=== PATIENT | female | born 1940 | race Caucasian/White ===

== ENCOUNTER → 2017-09-02 11:19 | Outpatient (CLI) | payer MEDICARE, BC, SELFPAY ==
[2017-09-02 12:09] LABS: Hemoglobin A1C% w Est Avg Glu 9.2 % (4.0-6.0)
[2017-09-02 13:34] LABS: HEMOLYSIS < 15 (0-50); Potassium 3.9 mmol/L (3.4-5.1)
[2017-09-02 13:35] LABS: Blood Urea Nitrogen 9 mg/dL (7-17); Calcium 9.5 mg/dL (8.4-10.2); Carbon Dioxide 28 mmol/L (22-32); Chloride 98 mmol/L (98-107); Estimated Glomerular Filt Rate > 60.0 mL/min (>60); Glucose 229 mg/dL (80-110); Sodium 138 mmol/L (137-145)
== END ==
PROVIDERS: PCP Family Medicine; Visit Provider Family Medicine
DX: E11.9 Type 2 diabetes mellitus without complications (principal)
CPT/HCPCS: 36415; 80048; 83036

== ENCOUNTER → 2017-12-01 09:55 | Outpatient (CLI) | payer MEDICARE, BC, SELFPAY ==
[2017-12-01 10:59] LABS: Hemoglobin A1C% w Est Avg Glu 9.1 % (4.0-6.0)
[2017-12-01 11:02] LABS: BUN Creatinine Ratio 18.3 (6-22); Blood Urea Nitrogen 11 mg/dL (7-17); Calcium 9.7 mg/dL (8.4-10.2); Carbon Dioxide 32 mmol/L (22-32); Chloride 99 mmol/L (98-107); Estimated Glomerular Filt Rate > 60.0 mL/min (>60); Glucose 183 mg/dL (80-110); HEMOLYSIS < 15 (0-50); Potassium 4.8 mmol/L (3.4-5.1); Sodium 142 mmol/L (137-145)
--- NOTE | 2017-12-29 14:36 | ONC.NAV ---
Description: Survivorship Care Plan Summary Activity: Sent copies to both patient and primary care provider.
== END ==
PROVIDERS: PCP Family Medicine; Visit Provider Family Medicine
DX: E11.9 Type 2 diabetes mellitus without complications (principal)
CPT/HCPCS: 36415; 80048; 83036

== ENCOUNTER → 2018-03-08 08:59 | Outpatient (CLI) | payer MEDICARE, BC, SELFPAY ==
[2018-03-08 10:32] LABS: Hemoglobin A1C% w Est Avg Glu 12.1 % (4.0-6.0)
[2018-03-08 10:56] LABS: BUN Creatinine Ratio 21.4 (6-22); Blood Urea Nitrogen 15 mg/dL (7-17); Calcium 9.5 mg/dL (8.4-10.2); Carbon Dioxide 30 mmol/L (22-32); Chloride 96 mmol/L (98-107); Estimated Glomerular Filt Rate > 60.0 mL/min (>60); Glucose 306 mg/dL (80-110); HEMOLYSIS < 15 (0-50); Potassium 4.4 mmol/L (3.4-5.1); Sodium 135 mmol/L (137-145)
== END ==
PROVIDERS: PCP Family Medicine; Visit Provider Family Medicine
DX: E11.9 Type 2 diabetes mellitus without complications (principal)
CPT/HCPCS: 36415; 80048; 83036

== ENCOUNTER → 2018-03-11 09:18 | Outpatient (CLI) | payer MEDICARE, BC, SELFPAY ==
--- NOTE | 2018-03-11 | DI.MG.S_ITS ---
BILATERAL DIGITAL SCREENING MAMMOGRAM 3D/2D WITH CAD: 03/11/2018 CLINICAL: Routine screening. Personal history of right breast cancer. Family history of breast cancer. Comparison is made to exams dated: 02/05/2017 mammogram, 02/04/2016 mammogram, and 08/09/2015 mammogram - [facility]. The tissue of both breasts is heterogeneously dense. This may lower the sensitivity of mammography. Current study was also evaluated with a Computer Aided Detection (CAD) system. There are benign post operative findings in the right breast. There also are benign calcifications in both breasts. There are mole markers on both breasts. No significant masses, calcifications, or other findings are seen in either breast. There has been no significant interval change. IMPRESSION: There is no mammographic evidence of malignancy. A 1 year screening mammogram is recommended. This exam was interpreted at Station ID: [id number]. NOTE: For mammograms, a report in lay terms will be sent to the patient. Approximately 15% of breast malignancies will not be visualized mammographically. In the management of a palpable breast mass, a negative mammogram must not discourage biopsy of a clinically suspicious lesion. Electronically Signed By: Armaan reyes/tolu:03/11/2018 22:16:25 letter sent: Normal Exam ACR BI-RADS Category 2: Benign Finding(s) 3342F
== END ==
PROVIDERS: Family Provider Surgery; PCP Family Medicine; Visit Provider Family Medicine
DX: Z12.31 Encounter for screening mammogram for malignant neoplasm of breast (principal); Z85.3 Personal history of malignant neoplasm of breast; Z80.3 Family history of malignant neoplasm of breast
CPT/HCPCS: 77063; 77067

== ENCOUNTER → 2018-06-03 10:42 | Outpatient (CLI) | payer MEDICARE, BC, SELFPAY ==
[2018-06-03 12:32] LABS: BUN Creatinine Ratio 17.1 (6-22); Blood Urea Nitrogen 12 mg/dL (7-17); Calcium 9.7 mg/dL (8.4-10.2); Carbon Dioxide 28 mmol/L (22-32); Chloride 97 mmol/L (98-107); Estimated Glomerular Filt Rate > 60.0 mL/min (>60); Glucose 138 mg/dL (80-110); HEMOLYSIS < 15 (0-50); Potassium 4.5 mmol/L (3.4-5.1); Sodium 136 mmol/L (137-145)
== END ==
PROVIDERS: Family Provider Surgery; PCP Family Medicine; Visit Provider Family Medicine
DX: E11.9 Type 2 diabetes mellitus without complications (principal)
CPT/HCPCS: 36415; 80048; 83036

== ENCOUNTER 2018-08-04 11:28 | Day surgery (SDC) | payer MEDICARE, BC, SELFPAY ==
--- NOTE | 2018-08-01 11:44 | PM.PREOP ---
Pre-operative Note Interval Note History & Physical reviewed/Exam performed by Physician: Yes Changes to H&P: No H&P completed within 30 days and has changed as indicated here:: glucose was checked on admission and stable prior to surgery.
--- NOTE | 2018-08-01 11:44 | PM.OP.1 ---
Operative Date/Time/Diagnoses Date of procedure: 08/04/18 Time of procedure: 11:45 Procedure & Clinicians Procedure: Preoperative diagnoses: 1. 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 2. Diabetes without retinopathy. 3. Labile hypertension. 4. Dry eye with corneal epithelial changes. 5. Strabismus. Postoperative diagnoses: 1. Right cataract removed by phacoemulsification with placement of posterior chamber intraocular lens and use of MiLOOP . 2. 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 3. Labile hypertension. Procedure: Phacoemulsification with posterior chamber intraocular lens implant Surgeon: Stacey Odom MD Complications: None Specimen: None Implant: ZCBOO+23.0 Blood loss: None Anesthesia: Retrobulbar with monitored standby Description of procedure: Patient presents with a complaint of decreased vision due to cataract which is affecting activities of daily living. The patient wants surgery to improve vision. She has advanced nuclear sclerotic cataract with poor visibility of the anterior capsule. She will possibly require capsular dye and a Miloop to reduce surgical risk. Her diabetes and hypertension were stabilized for surgery. The patient was taken to the operating room and given IV sedation. A retrobulbar block consisting of 6 cc of 2% xylocaine without epinephrine mixed half and half with 0.5% Marcaine with 1 cc of hyaluronidase added is placed between the medial and lateral 1/3 of the inferior orbital rim. Lid akinesia is obtain with 1% xylocaine with epinephrine infiltrated along the lid margin. The eye is manually massaged for 30 sec, prepped using Betadine solution, and draped in the usual sterile fashion. Temporal approach was made, a 1 mm side-port incision was made 90? from the proposed clear corneal incision position. Phenylephrine 1.5% mixed with 1% xylocaine 0.2 cc was placed into the anterior chamber. No capsular dye was used. Viscoat followed by Paz was then placed. A 2.6 mm clear incision with a 2.6 mm blade was placed. A 360 degree capsulorrhexis style capsulotomy was then performed with a cystitome needle on a Healon greatly aided by the capsular dye. Hydrodelineation and hydrodissection were performed.Extra viscoelastic was placed into the anterior chamber. A MiLOOP device was inspected, inserted into the anterior chamber in the neutral position and placed around the peripheral nucleus under the right side of the capsulorrhexis. The lens was then viviana -dissected and the device then removed from the eye. The phacoemulsification unit is introduced, and sculpting notice used to emulsify the central lens. It is then removed in chopping mode. Epi nucleus is removed with epinuclear mode and irrigation aspiration was used to remove the peripheral cortex. The posterior capsule is polished. The intraocular lens is selected, inspected, power confirmed, and placed in the posterior chamber. The pupil was constricted with Miostat.. The wound was stromally hydrated and tested for leaks, there was none and it was left sutureless. Vigamox 0.1 cc was placed into the anterior chamber. Kenalog 0.2 cc was placed in the superior subconjunctival space. A drop of antibiotic and was placed and the eye was patched and shielded. The patient was stable and returned to the recovery room in excellent condition. Dictated by: Stacey Odom MD Copy to: [facility]
[2018-08-04] MEDS: PROPARACAINE 0.5% OPHTH SOL 2 DROPS EYE-OP (11:44)
[2018-08-04 11:47] VITALS: BP 153/78; PULSE 82; RESP 15; TEMP 36.2; O2SAT 99
[2018-08-04] MEDS: CATARACT EYE COMPOUND (10 DROPS/SYRINGE) 3 DROPS EYE-OP (11:50)
[2018-08-04 11:51] VITALS: BMI 27.9
[2018-08-04] MEDS: LIDOCAINE 2% 4 ML, BUPIVACAINE 0.5% (PF) 4 ML, HYALURONIDASE 150 UNIT INJ (13:04)
[2018-08-04] MEDS: LIDOCAINE 1% W/EPI INJ 20 ML INJ (13:05)
[2018-08-04] MEDS: PHENYLEPHRINE/LIDOCAINE VIAL (OR) 0.2 ML EYE-OP (13:05)
[2018-08-04] MEDS: MOXIFLOXACIN OPHTH DROPS 3 ML BOTTLE 2 DROPS INJ (13:05)
[2018-08-04] MEDS: CARBACHOL 1.5 ML VIAL INJ (13:06)
[2018-08-04] MEDS: HYALURONATE SODIUM 10 MG/ML SYRINGE INJ (13:06)
[2018-08-04] MEDS: CHONDROIDTIN/SOD HYALURONATE 1.05 ML SYRINGE INTRAOCULA (13:06)
[2018-08-04] MEDS: TRIAMCINOLONE 50 MG/5 ML VIAL INJ (13:06)
[2018-08-04] MEDS: BALANCED SALT IRRIG SOLN NO.2 15 ML IRR (13:06)
[2018-08-04] MEDS: NEOMYCIN/POLY/DEX OPHTH OINT 1 APPLIC EYE-RIGHT (13:07)
[2018-08-04] MEDS: OFLOXACIN 0.3% OPHTH 5 ML 2 DROPS EYE-RIGHT (13:07)
[2018-08-04] MEDS: BALANCED SALT IRRIG SOLN NO.2 500 ML, EPINEPHrine 1 MG IRR (13:08)
[2018-08-04 13:32] VITALS: BP 117/65; PULSE 74; RESP 16; TEMP 36.5; O2SAT 100
== END 2018-08-04 13:43 | disposition home or self-care (01) ==
LOC: OR 11:29
PROVIDERS: PCP Family Medicine; Visit Provider Ophthalmology
PROC: (CPT 66984; principal; 2018-08-04 11:45)
DX: H25.811 Combined forms of age-related cataract, right eye (principal); E11.9 Type 2 diabetes mellitus without complications; H04.129 Dry eye syndrome of unspecified lacrimal gland; H50.9 Unspecified strabismus; I10 Essential (primary) hypertension; E78.5 Hyperlipidemia, unspecified; E03.9 Hypothyroidism, unspecified
CPT/HCPCS: 66984; J0171; J2250; J2704; J3010; J3301; J3470

== ENCOUNTER → 2018-09-07 11:22 | Outpatient (CLI) | payer MEDICARE, BC, SELFPAY ==
[2018-09-07 12:16] LABS: BUN Creatinine Ratio 23.3 (6-22); Blood Urea Nitrogen 14 mg/dL (7-17); Calcium 9.6 mg/dL (8.4-10.2); Carbon Dioxide 29 mmol/L (22-32); Chloride 99 mmol/L (98-107); Estimated Glomerular Filt Rate > 60.0 mL/min (>60); Glucose 117 mg/dL (80-110); HEMOLYSIS < 15 (0-50); Potassium 4.5 mmol/L (3.4-5.1); Sodium 137 mmol/L (137-145)
[2018-09-07 18:59] LABS: Hemoglobin A1C% w Est Avg Glu 7.7 % (4.0-6.0)
== END ==
PROVIDERS: PCP Family Medicine; Visit Provider Family Medicine
DX: E11.9 Type 2 diabetes mellitus without complications (principal)
CPT/HCPCS: 36415; 80048; 83036

== ENCOUNTER 2018-09-11 06:59 | Emergency (ER) | payer MEDICARE, BC, SELFPAY ==
[2018-09-11 07:10] VITALS: BP 176/67; PULSE 92; RESP 18; TEMP 36.4; O2SAT 97
--- NOTE | 2018-09-11 07:19 | DI.RAD.S_ITS ---
PROCEDURE: XR WRIST LT MIN 3V INDICATIONS: fall onto left wrist TECHNIQUE: 4 views of the wrist were acquired. COMPARISON: None. FINDINGS: Bones: There is a questionable triquetral avulsion fracture along the dorsal aspect of the wrist. No displaced fractures are present. There are no dislocations or suspicious osseous lesions. The bone mineralization is decreased. Severe degenerative changes are noted involving the basal joint of the thumb. Soft tissues: No suspicious soft tissue calcifications. Soft tissue swelling about the dorsal aspect of the wrist is present. IMPRESSION: 1. Questionable triquetral avulsion fracture. Please correlate clinically for focal pain along the dorsal aspect of the proximal carpal row. 2. Advanced degenerative changes involving the basal joint of the thumb. Dictated by: Kamran Jones M.D. on 09/11/2018 at 6:43 Approved by: Kamran Jones M.D. on 09/11/2018 at 6:45
--- NOTE | 2018-09-11 07:48 | ED_ITS ---
HPI - Extremity Injury (Upper) General Chief Complaint: Extremity Injury, Upper Stated Complaint: Fell lt arm/wrist may be broken Time Seen by Provider: 09/11/18 07:11 Source: patient Mode of arrival: ambulatory Limitations: no limitations History of Present Illness HPI narrative: Patient is a 78-year-old female who presents with left wrist pain. She fell yesterday sounds like a mechanical fall with her hands out. However she was unable sleep last night because her wrist with throbbing so bad we. She has no numbness or tingling but hurts every time she moves. Related Data Home Medications Medication Instructions Recorded Confirmed Fish Oil (#FISH OIL) 1 iu PO #0 10/17/10 06/15/18 Ascorbic Acid/Bioflavonoid 1 tab PO QDAY #0 12/27/10 06/15/18 (#VITAMIN C) Calcium/Magnesium (#CALCIUM & 1 cap PO QDAY #0 12/27/10 06/15/18 MAGNESIUM CHELATE 180 MG-90 MG) VITAMIN D 400 iu PO QDAY #0 12/27/10 06/15/18 multivitamin 1 tab PO DAILY #0 12/27/10 08/04/18 psyllium husk (aspartame) 1 pkt PO QDAY #0 12/27/10 06/15/18 [Metamucil Fiber Singles] Previous Rx's Medication Instructions Recorded varicella-zoster gE-AS01B (PF) 0.5 ml IM X1 #1 ea 06/03/17 [Shingrix (PF)] atenolol 50 mg PO QDAY #90 tab 04/15/18 hydrochlorothiazide 25 mg tablet 25 mg PO QDAY #90 tab 04/23/18 clotrimazole-betamethasone 1 1 applictn TOPICAL .COMPLEX #45 06/09/18 %-0.05 % topical cream gram niacin [Niaspan Extended-Release] 0 PO HS #360 tab 07/15/18 metformin 500 mg tablet 500 mg PO BID #180 tab 09/01/18 tramadol 50 mg PO Q6H PRN #10 tab 09/11/18 Allergies Allergy/AdvReac Type Severity Reaction Status Date / Time No Known Drug Allergies Allergy Verified 08/04/18 11:43 Review of Systems Review of Systems GENERAL: Denies chills,fever HEENT: Denies throat pain RESPIRATORY: Denies dyspnea, cough, wheezing CARDIOVASCULAR: Denies chest pain, palpitations GASTROINTESTINAL: Denies nausea, vomiting MUSCULOSKELETAL: See HPI SKIN: No rash, no laceration, no pruritus NEUROLOGIC: Denies weakness, dizziness, headache, numbness 8 point review of systems is negative except for those stated above and HPI [facility] Medical History Foot pain (Chronic ~2013) Hay fever (Chronic ~1997) Hypertension (Chronic ~1994) Hyperthyroidism (Chronic) Osteoarthritis (Chronic) Osteopenia (Chronic ~2011) Scoliosis (Chronic ~2013) Chicken pox (Resolved ~1946) Measles (Resolved ~1974) Mumps (Resolved) Surgical History Anesthesia (Resolved) Colon polyps (Resolved ~2002) Squamous cell skin cancer (Resolved ~2009) Trigger finger (Resolved ~09/2005) Family History (Updated 09/08/17 @ 07:22 by Sarah Herrera) Father Hypertension Kidney failure Mother Cancer Grandmother Brain tumor Grandfather Pernicious anemia Social History household members: spouse Smoking Status: Never smoker Family History Father Hypertension Kidney failure Mother Cancer Grandmother Brain tumor Grandfather Pernicious anemia Social History household members: spouse Smoking Status: Never smoker Exam Initial Vital Signs Initial Vital Signs: Vital Signs Temperature 97.5 F L 09/11/18 07:10 Pulse Rate 92 H 09/11/18 07:10 Respiratory Rate 18 09/11/18 07:10 Blood Pressure 176/67 H 09/11/18 07:10 Pulse Oximetry 97 09/11/18 07:10 GENERAL: Alert well-appearing elderly female no acute distress CARDIOVASCULAR: peripheral pulses in tact, cap refill <2 sec RESPIRATORY: No respiratory distress, speaks in full sentences without difficulty EXTREMITIES: Normal range of motion, no clubbing or edema. Neurovascularly intact Left upper extremity pain with wrist movement saw some mild swelling noted able to move all fingers. No obvious bony deformity peripheral pulses intact NEUROLOGICAL: Cranial nerves II through XII grossly intact. Normal gait and speech. SKIN: Warm, dry, no petechiae, no rashes or lesions. Procedures Orthopedic Splinting/Casting Injury #1: Side: left Upper Extremity Injury Location: wrist Upper Extremity Immobilizer: thumb spica Post splinting neuro exam: intact Post splinting vascular exam: intact Placed by: Nursing Course Orders Ordered: ED Orders 09/11/18 07:19 XR wrist LT min 3V Stat Vital Signs - 8 hr 09/11/18 07:10 09/11/18 08:11 Temperature 97.5 F L Pulse Rate 92 H 62 Respiratory Rate 18 16 Blood Pressure 176/67 H Blood Pressure [Right Arm] 142/70 H Pulse Oximetry 97 97 MDM - Extremity Injury (Upper) Imaging Data Left wrist: Radiologist's impression: PROCEDURE: XR WRIST LT MIN 3V INDICATIONS: fall onto left wrist TECHNIQUE: 4 views of the wrist were acquired. COMPARISON: None. FINDINGS: Bones: There is a questionable triquetral avulsion fracture along the dorsal aspect of the wrist. No displaced fractures are present. There are no dislocations or suspicious osseous lesions. The bone mineralization is decreased. Severe degenerative changes are noted involving the basal joint of the thumb. Soft tissues: No suspicious soft tissue calcifications. Soft tissue swelling about the dorsal aspect of the wrist is present. IMPRESSION: 1. Questionable triquetral avulsion fracture. Please correlate clinically for focal pain along the dorsal aspect of the proximal carpal row. 2. Advanced degenerative changes involving the basal joint of the thumb. Dictated by: Kamran Jones M.D. on 09/11/2018 at 6:43 MDM Narrative Medical decision making narrative: Patient really has pain all over her wrist. She does have some pain Over the triquetrum but it seems to be quite diffuse. Recommends that there is a fracture. Patient is placed in Velcro splint. She has appointment with her PCP in 3 days. Recommend repeat x-ray. Discharge Plan Departure Patient Disposition: Home Clinical Impression: Left wrist sprain Qualifiers: Encounter type: initial encounter Qualified Code(s): S63.502A - Unspecified sprain of left wrist, initial encounter Discharge Date/Time: 09/11/18 08:27 Interventions: ED Discharge Assessment Last Done: 09/11/18 08:27 Instructions: DI for Wrist Sprain Activity Restrictions/Additional Instructions: *You have been diagnosed with left wrist sprain *What to do: There is a questionable fracture in year wrist. I recommend wearing a splint until re-evaluation and re-x-ray. For may be up to 2 weeks. Have your PCP repeat an x-ray *Continue to take medications as directed Tylenol 650 mg every 4-6 hours if needed for mild pain Tramadol 50 mg at night time or every 6 hours if needed for severe pain *Follow up with your primary care provider in 2-3 days *Return to ER if you should have increasing pain, numbness, tingling, weakness or any new, worsening or concerning symptoms CONTROLLED SUBSTANCE DISCHARGE (Narcotoic/benzodiazepine/Flexeril/Phenergan) 1. You have been prescribed narcotic medications, it does have acetaminophen/Tylenol/paracetamol in it so do not take extra Tylenol or Tylenol containing products TRAMADOL DOES NOT CONTAIN ACETAMINOPHEN/TYLENOL 2. Please understand that we cannot provide further refills of narcotics, be nzodiazepines or controlled substances through the ED and her pain management will need to be through your provider. 3. While on these medications you cannot drive or operate heavy machinery. 4. You cannot sign legal documents or perform any duties such as this. 5. As long as you're taking opiate pain medications he should also be taking a stool softener such as Colace, Dulcolax, MiraLAX or prune juice, to help avoid constipation. Prescriptions: New tramadol 50 mg tablet 50 mg PO Q6H PRN (Reason: pain) Qty: 10 RF: 0 No Action Fish Oil (#FISH OIL) 1 iu PO Qty: 0 RF: 0 Ascorbic Acid/Bioflavonoid (#VITAMIN C) 1 tab PO QDAY Qty: 0 RF: 0 multivitamin Tablet 1 tab PO DAILY Qty: 0 RF: 0 Calcium/Magnesium (#CALCIUM & MAGNESIUM CHELATE 180 MG-90 MG) 1 cap PO QDAY Qty: 0 RF: 0 VITAMIN D 400 iu PO QDAY Qty: 0 RF: 0 psyllium husk (aspartame) [Metamucil Fiber Singles] 3.4 GM powder in packet 1 pkt PO QDAY Qty: 0 RF: 0 varicella-zoster gE-AS01B (PF) [Shingrix (PF)] 50 MCG/0.5 ML suspension for reconstitution 0.5 ml IM X1 Qty: 1 RF: 0 atenolol 50 mg tablet 50 mg PO QDAY Qty: 90 RF: 2 hydrochlorothiazide 25 mg tablet 25 mg PO QDAY Qty: 90 RF: 3 clotrimazole-betamethasone [Lotrisone] 1-0.05 % cream 1 applictn Topical .COMPLEX Qty: 45 RF: 1 niacin [Niaspan Extended-Release] 500 mg tablet extended release 24 hr PO HS Qty: 360 RF: 1 metformin 500 mg tablet 500 mg PO BID Qty: 180 RF: 3 Referrals: Jose Alberto Hutchinson MD [Primary Care Provider] -
[2018-09-11 08:11] VITALS: BP 142/70; PULSE 62; RESP 16; O2SAT 97
== END 2018-09-11 08:27 | disposition home or self-care (01) ==
PROVIDERS: Emergency Provider Emergency Medicine; PCP Family Medicine
DX: S63.502A Unspecified sprain of left wrist, initial encounter (principal); W19.XXXA Unspecified fall, initial encounter
CPT/HCPCS: 29260; 73110; 99282; 99283

== ENCOUNTER → 2018-12-07 10:18 | Outpatient (CLI) | payer MEDICARE, BC, SELFPAY ==
[2018-12-07 10:47] LABS: Add Manual Diff / Slide Review NO; Basophils Absolute Auto 0 /uL (0-100); Basophils Percent Auto 0.6 % (0-2); Eosinophils Absolute Auto 200 /uL (0-450); Eosinophils Percent Auto 3.4 % (2-4); Hematocrit 44.7 % (36-46); Hemoglobin 15.5 g/dL (12.0-16.0); Lymphocytes Absolute Auto 1700 /uL (1100-4500); Lymphocytes Percent Auto 33.6 % (25-40); Mean Corpuscular HGB Conc 34.7 % (30-36); Mean Corpuscular Hemoglobin 32.7 PG (26-34); Mean Corpuscular Volume 94.2 fL (80-100); Monocytes Absolute Auto 400 /uL (0-900); Monocytes Percent Auto 7.1 % (3-14); Neutrophils Absolute Auto 2700 /uL (1500-7000); Neutrophils Percent Auto 55.3 % (50-75); Platelet Count 176 X10^3/uL (150-400); Red Blood Cell Count 4.75 X10^6/uL (4.0-5.2); Red Cell Distribution Width 13.1 % (11.6-14.8)
[2018-12-07 11:01] LABS: Hemoglobin A1C% w Est Avg Glu 7.3 % (4.0-6.0)
[2018-12-07 11:07] LABS: Alanine Aminotransferase 33 IU/L (9-52); Albumin 4.1 g/dL (3.5-5.0); Albumin Globulin Ratio 1.4 (1.0-2.8); Alkaline Phosphatase 68 U/L (38-126); Aspartate Aminotransferase 32 IU/L (14-36); BUN Creatinine Ratio 21.7 (6-22); Bilirubin Total 0.6 mg/dL (0.2-1.3); Blood Urea Nitrogen 13 mg/dL (7-17); Calcium 9.6 mg/dL (8.4-10.2); Carbon Dioxide 31 mmol/L (22-32); Chloride 98 mmol/L (98-107); Cholesterol 201 mg/dL (140-199); Estimated Glomerular Filt Rate > 60.0 mL/min (>60); Globulin 2.9 g/dL (1.7-4.1); Glucose 158 mg/dL (80-110); HDL Cholesterol 89 mg/dL (40-60); HEMOLYSIS 21 (0-50); LDL Cholesterol Calculated 90 mg/dL (<100); Potassium 4.7 mmol/L (3.4-5.1); Sodium 136 mmol/L (137-145); Triglycerides 111 mg/dL (35-150)
[2018-12-07 11:34] LABS: Thyroid Stimulating Hormone 3.23 uIU/mL (0.47-4.68)
[2018-12-07 11:57] LABS: Creatinine Urine Random 62.5 mg/dL
== END ==
PROVIDERS: PCP Family Medicine; Visit Provider Family Medicine
DX: E11.9 Type 2 diabetes mellitus without complications (principal)
CPT/HCPCS: 36415; 80053; 80061; 82043; 82570; 83036; 84443; 85025

== ENCOUNTER → 2019-03-15 10:16 | Outpatient (CLI) | payer MEDICARE, BC, SELFPAY ==
[2019-03-15 10:49] LABS: Hemoglobin A1C% w Est Avg Glu 8.7 % (4.0-6.0)
[2019-03-15 10:55] LABS: BUN Creatinine Ratio 18.3 (6-22); Blood Urea Nitrogen 11 mg/dL (7-17); Calcium 9.6 mg/dL (8.4-10.2); Carbon Dioxide 32 mmol/L (22-32); Chloride 98 mmol/L (98-107); Estimated Glomerular Filt Rate > 60.0 mL/min (>60); Glucose 191 mg/dL (80-110); HEMOLYSIS < 15 (0-50); Potassium 4.3 mmol/L (3.4-5.1); Sodium 138 mmol/L (137-145)
== END ==
PROVIDERS: PCP Family Medicine; Visit Provider Family Medicine
DX: E11.9 Type 2 diabetes mellitus without complications (principal)
CPT/HCPCS: 36415; 80048; 83036

== ENCOUNTER → 2019-03-17 09:13 | Outpatient (CLI) | payer MEDICARE, BC, SELFPAY ==
--- NOTE | 2019-03-17 | DI.MG.S_ITS ---
BILATERAL DIGITAL SCREENING MAMMOGRAM 3D/2D WITH CAD POST LUMPECTOMY: 03/17/2019 CLINICAL: Personal history of breast cancer. Family history of breast cancer. Comparison is made to exams dated: 03/11/2018 mammogram, 02/05/2017 mammogram, and 02/04/2016 mammogram - [facility]. The tissue of both breasts is heterogeneously dense. This may lower the sensitivity of mammography. Current study was also evaluated with a Computer Aided Detection (CAD) system. There are benign calcifications in both breasts. There also are benign post operative findings in the right breast. There are mole markers on both breasts. There are grouped fine punctate calcifications in the left breast at 3 o'clock middle depth. No other significant masses, calcifications, or other findings are seen in either breast. IMPRESSION: INCOMPLETE: NEEDS ADDITIONAL IMAGING EVALUATION The grouped fine punctate calcifications in the left breast are indeterminate. Mediolateral, spot magnification, and additional views are recommended. This exam was interpreted at Station ID: [id number]. NOTE: For mammograms, a report in lay terms will be sent to the patient. Approximately 15% of breast malignancies will not be visualized mammographically. In the management of a palpable breast mass, a negative mammogram must not discourage biopsy of a clinically suspicious lesion. Electronically Signed By: Sj reagan/tolu:03/17/2019 11:16:50 copy to: [facility] letter sent: Additional Imaging Needed ACR BI-RADS Category 0: Incomplete 3340F
== END ==
PROVIDERS: PCP Family Medicine; Visit Provider Family Medicine
DX: Z12.31 Encounter for screening mammogram for malignant neoplasm of breast (principal); Z80.3 Family history of malignant neoplasm of breast
CPT/HCPCS: 77063; 77067

== ENCOUNTER → 2019-04-04 12:38 | Outpatient (CLI) | payer MEDICARE, BC, SELFPAY ==
--- NOTE | 2019-04-04 12:40 | DI.MG.S_ITS ---
UNILATERAL LEFT DIGITAL DIAGNOSTIC MAMMOGRAM 3D/2D WITH ADDITIONAL VIEWS: 04/04/2019 CLINICAL: Additional evaluation requested from prior study. Comparison is made to exams dated: 03/11/2018 mammogram, 03/17/2019 mammogram, and 02/05/2017 mammogram - [facility]. The tissue of left breast is heterogeneously dense. This may lower the sensitivity of mammography. There are grouped fine punctate calcifications in the left breast at 4 o'clock middle depth. These are increased in number of calcifications over time. No other significant masses or calcifications are seen in the breast. IMPRESSION: SUSPICIOUS OF MALIGNANCY The grouped fine punctate calcifications in the left breast are at a low suspicion for malignancy. A stereotactic biopsy is recommended. The findings were discussed with the patient at the conclusion of the study by Dr. Dumont. This exam was interpreted at Station ID: [id number]. NOTE: For mammograms, a report in lay terms will be sent to the patient. Approximately 15% of breast malignancies will not be visualized mammographically. In the management of a palpable breast mass, a negative mammogram must not discourage biopsy of a clinically suspicious lesion. Electronically Signed By: Sj reagan/:04/04/2019 14:05:00 copy to: [facility] letter sent: Biopsy Required ACR BI-RADS Category 4a: Suspicious abnormality - low suspicion for malignancy 3344F
== END ==
PROVIDERS: Family Provider Surgery; PCP Family Medicine; Visit Provider Family Medicine
DX: R92.8 Other abnormal and inconclusive findings on diagnostic imaging of breast (principal); R92.1 Mammographic calcification found on diagnostic imaging of breast
CPT/HCPCS: 77065; G0279

== ENCOUNTER → 2019-07-26 10:18 | Outpatient (CLI) | payer MEDICARE, BC, SELFPAY ==
[2019-07-26 12:02] LABS: Hemoglobin A1C% w Est Avg Glu 11.2 % (4.0-6.0)
== END ==
PROVIDERS: Family Provider Surgery; PCP Family Medicine; Referring Provider Family Medicine; Visit Provider Family Medicine
DX: E11.9 Type 2 diabetes mellitus without complications (principal)
CPT/HCPCS: 36415; 83036

== ENCOUNTER → 2019-10-24 09:45 | Outpatient (CLI) | payer MEDICARE, BC, SELFPAY ==
[2019-10-24 10:28] LABS: Hemoglobin A1C% w Est Avg Glu 10.9 % (4.0-6.0)
[2019-10-24 10:44] LABS: BUN Creatinine Ratio 27.4 (6-22); Blood Urea Nitrogen 17 mg/dL (7-17); Calcium 9.5 mg/dL (8.4-10.2); Carbon Dioxide 30 mmol/L (22-32); Chloride 98 mmol/L (98-107); Estimated Glomerular Filt Rate > 60.0 mL/min (>60); Glucose 228 mg/dL (80-110); HEMOLYSIS < 15 (0-50); Potassium 4.3 mmol/L (3.4-5.1); Sodium 135 mmol/L (137-145)
== END ==
PROVIDERS: Family Provider Surgery; PCP Family Medicine; Referring Provider Family Medicine; Visit Provider Family Medicine
DX: E11.9 Type 2 diabetes mellitus without complications (principal)
CPT/HCPCS: 36415; 80048; 83036

== ENCOUNTER → 2020-01-18 11:02 | Outpatient (CLI) | payer MEDICARE, BC, SELFPAY ==
[2020-01-18 12:33] LABS: Hemoglobin A1C% w Est Avg Glu 11.6 % (4.0-6.0)
== END ==
PROVIDERS: Family Provider Surgery; PCP Family Medicine; Referring Provider Family Medicine; Visit Provider Family Medicine
DX: E11.9 Type 2 diabetes mellitus without complications (principal)
CPT/HCPCS: 36415; 83036

== ENCOUNTER → 2020-04-25 10:19 | Outpatient (CLI) | payer MEDICARE, BC, SELFPAY ==
--- NOTE | 2020-04-25 | DI.MG.S_ITS ---
BILATERAL DIGITAL SCREENING MAMMOGRAM 3D/2D WITH CAD POST LUMPECTOMY: 04/25/2020 CLINICAL: Routine screening. Personal history of right breast cancer. Family history of breast cancer. Comparison is made to exams dated: 03/17/2019 mammogram, 03/11/2018 mammogram, 02/05/2017 mammogram - [facility], and 04/12/2019 stereotactic biopsy - [facility]. The tissue of both breasts is heterogeneously dense. This may lower the sensitivity of mammography. Current study was also evaluated with a Computer Aided Detection (CAD) system. There are benign post operative findings in the right breast. There also is a biopsy clip in the left breast. No significant masses, calcifications, or other findings are seen in either breast. There has been no significant interval change. IMPRESSION: BENIGN There is no mammographic evidence of malignancy. A 1 year screening mammogram is recommended. This exam was interpreted at Station ID: [id number]. NOTE: For mammograms, a report in lay terms will be sent to the patient. Approximately 15% of breast malignancies will not be visualized mammographically. In the management of a palpable breast mass, a negative mammogram must not discourage biopsy of a clinically suspicious lesion. Electronically Signed By: Robert german/tolu:04/25/2020 12:07:32 copy to: [facility] letter sent: Normal Exam ACR BI-RADS Category 2: Benign Finding(s) 3342F
[2020-04-25 11:21] LABS: Add Manual Diff / Slide Review NO; Basophils Absolute Auto 0 /uL (0-100); Basophils Percent Auto 0.7 % (0-2); Eosinophils Absolute Auto 100 /uL (0-450); Eosinophils Percent Auto 1.6 % (2-4); Hematocrit 43.9 % (36-46); Hemoglobin 15.1 g/dL (12.0-16.0); Lymphocytes Absolute Auto 1800 /uL (1100-4500); Lymphocytes Percent Auto 37.1 % (25-40); Mean Corpuscular HGB Conc 34.5 % (30-36); Mean Corpuscular Hemoglobin 31.6 PG (26-34); Mean Corpuscular Volume 91.6 fL (80-100); Monocytes Absolute Auto 400 /uL (0-900); Monocytes Percent Auto 8.7 % (3-14); Neutrophils Absolute Auto 2600 /uL (1500-7000); Neutrophils Percent Auto 51.9 % (50-75); Platelet Count 179 X10^3/uL (150-400); Red Cell Distribution Width 12.7 % (11.6-14.8); White Blood Cell Count 4.9 X10^3/uL (4.5-11.0)
[2020-04-25 11:30] LABS: Hemoglobin A1C% w Est Avg Glu 9.1 % (4.0-6.0)
[2020-04-25 11:48] LABS: Alanine Aminotransferase 19 IU/L (<35); Albumin 3.7 g/dL (3.5-5.0); Albumin Globulin Ratio 1.4 (1.0-2.8); Alkaline Phosphatase 71 U/L (38-126); Aspartate Aminotransferase 21 IU/L (14-36); BUN Creatinine Ratio 27.3 (6-22); Bilirubin Total 0.7 mg/dL (0.2-1.3); Blood Urea Nitrogen 18 mg/dL (7-17); Calcium 9.5 mg/dL (8.4-10.2); Carbon Dioxide 33 mmol/L (22-32); Chloride 99 mmol/L (98-107); Cholesterol 199 mg/dL (140-199); Estimated Glomerular Filt Rate > 60.0 mL/min (>60); Globulin 2.7 g/dL (1.7-4.1); Glucose 196 mg/dL (80-110); HDL Cholesterol 58 mg/dL (40-60); HEMOLYSIS < 15 (0-50); LDL Cholesterol Calculated 113 mg/dL (<100); Potassium 4.7 mmol/L (3.4-5.1); Sodium 135 mmol/L (137-145); Total Protein 6.4 g/dL (6.3-8.2); Triglycerides 139 mg/dL (35-150)
== END ==
PROVIDERS: Family Provider Surgery; PCP Family Medicine; Referring Provider Family Medicine; Visit Provider Family Medicine
DX: Z12.31 Encounter for screening mammogram for malignant neoplasm of breast (principal); Z85.3 Personal history of malignant neoplasm of breast; Z80.3 Family history of malignant neoplasm of breast; E11.9 Type 2 diabetes mellitus without complications; E78.2 Mixed hyperlipidemia
CPT/HCPCS: 36415; 77063; 77067; 80053; 80061; 83036; 85025

== ENCOUNTER → 2020-05-17 10:30 | Outpatient (CLI) | payer MEDICARE, BC, SELFPAY ==
[2020-05-17] MEDS: COVID-19 VACC, Ad26(JANSSEN)/PF 0.5 ML IM (10:38)
== END ==
PROVIDERS: Family Provider Surgery; PCP Family Medicine; Visit Provider Internal Medicine
DX: Z23 Encounter for immunization (principal)
CPT/HCPCS: 0031A; 91303

== ENCOUNTER → 2020-08-20 09:50 | Outpatient (CLI) | payer MEDICARE, BC, SELFPAY ==
[2020-08-20 11:28] LABS: Hemoglobin A1C% w Est Avg Glu 7.8 % (4.0-6.0)
== END ==
PROVIDERS: Family Provider Surgery; PCP Family Medicine; Referring Provider Family Medicine; Visit Provider Family Medicine
DX: E11.9 Type 2 diabetes mellitus without complications (principal)
CPT/HCPCS: 36415; 83036

== ENCOUNTER → 2020-11-06 09:57 | Outpatient (CLI) | payer MEDICARE, BC, SELFPAY ==
[2020-11-06 10:40] LABS: Add Manual Diff / Slide Review NO; Basophils Absolute Auto 0 /uL (0-100); Eosinophils Absolute Auto 200 /uL (0-450); Eosinophils Percent Auto 4.2 % (2-4); Hematocrit 45.8 % (36-46); Hemoglobin 15.3 g/dL (12.0-16.0); Lymphocytes Absolute Auto 1600 /uL (1100-4500); Mean Corpuscular HGB Conc 33.5 % (30-36); Mean Corpuscular Hemoglobin 30.1 PG (26-34); Mean Corpuscular Volume 90.1 fL (80-100); Monocytes Absolute Auto 400 /uL (0-900); Monocytes Percent Auto 8.6 % (3-14); Neutrophils Absolute Auto 2300 /uL (1500-7000); Neutrophils Percent Auto 51.2 % (50-75); Platelet Count 168 X10^3/uL (150-400); Red Blood Cell Count 5.08 X10^6/uL (4.0-5.2); Red Cell Distribution Width 13.2 % (11.6-14.8); White Blood Cell Count 4.6 X10^3/uL (4.5-11.0)
[2020-11-06 10:45] LABS: Hemoglobin A1C% w Est Avg Glu 6.9 % (4.0-6.0)
[2020-11-06 10:54] LABS: Alanine Aminotransferase 19 IU/L (<35); Albumin Globulin Ratio 1.4 (1.0-2.8); Alkaline Phosphatase 89 U/L (38-126); Aspartate Aminotransferase 26 IU/L (14-36); BUN Creatinine Ratio 25.5 (6-22); Bilirubin Total 0.6 mg/dL (0.2-1.3); Blood Urea Nitrogen 14 mg/dL (7-17); Calcium 9.7 mg/dL (8.4-10.2); Carbon Dioxide 31 mmol/L (22-32); Chloride 104 mmol/L (98-107); Cholesterol 194 mg/dL (140-199); Estimated Glomerular Filt Rate > 60.0 mL/min (>60); Globulin 2.9 g/dL (1.7-4.1); Glucose 145 mg/dL (80-110); HDL Cholesterol 55 mg/dL (40-60); HEMOLYSIS < 15 (0-50); LDL Cholesterol Calculated 113 mg/dL (<100); Potassium 4.9 mmol/L (3.4-5.1); Sodium 139 mmol/L (137-145); Total Protein 6.9 g/dL (6.3-8.2); Triglycerides 130 mg/dL (35-150)
== END ==
PROVIDERS: PCP Family Medicine; Referring Provider Family Medicine; Visit Provider Family Medicine
DX: E78.2 Mixed hyperlipidemia (principal); E11.9 Type 2 diabetes mellitus without complications; I10 Essential (primary) hypertension
CPT/HCPCS: 36415; 80053; 80061; 83036; 85025

== ENCOUNTER → 2020-11-14 11:49 | Outpatient (CLI) | payer MEDICARE, BC, SELFPAY ==
[2020-11-14 14:18] LABS: Free T3, Triiodothyronine Free 3.92 pg/mL (2.77-5.27); Free T4, Direct Thyroxine 1.16 ng/dL (0.78-2.19)
[2020-11-14 14:32] LABS: Thyroid Stimulating Hormone 0.487 uIU/mL (0.47-4.68)
== END ==
PROVIDERS: PCP Family Medicine; Referring Provider Family Medicine; Visit Provider Family Medicine
DX: L65.9 Nonscarring hair loss, unspecified (principal); L85.3 Xerosis cutis
CPT/HCPCS: 36415; 84439; 84443; 84481

== ENCOUNTER → 2021-05-03 09:44 | Outpatient (CLI) | payer MEDICARE, BC, SELFPAY ==
--- NOTE | 2021-05-03 | DI.MG.S_ITS ---
BILATERAL DIGITAL SCREENING MAMMOGRAM 3D/2D WITH CAD: 05/03/2021 CLINICAL: Routine screening. Personal history of right breast cancer. Family history of breast cancer. Comparison is made to exams dated: 04/25/2020 mammogram, 04/04/2019 mammogram, 03/17/2019 mammogram, and 03/11/2018 mammogram - [facility]. There are scattered fibroglandular elements in both breasts. Current study was also evaluated with a Computer Aided Detection (CAD) system. There are benign post operative findings in the right breast. There also is a biopsy clip in the left breast. No significant masses, calcifications, or other findings are seen in either breast. There has been no significant interval change. IMPRESSION: BENIGN There is no mammographic evidence of malignancy. A 1 year screening mammogram is recommended. This exam was interpreted at Station ID: [id number]. NOTE: For mammograms, a report in lay terms will be sent to the patient. Approximately 15% of breast malignancies will not be visualized mammographically. In the management of a palpable breast mass, a negative mammogram must not discourage biopsy of a clinically suspicious lesion. Electronically Signed By: Pita appiah/tolu:05/03/2021 12:48:47 copy to: [facility] letter sent: Normal Exam ACR BI-RADS Category 2: Benign Finding(s) 3342F
== END ==
PROVIDERS: PCP Family Medicine; Referring Provider Family Medicine; Visit Provider Family Medicine
DX: Z12.31 Encounter for screening mammogram for malignant neoplasm of breast (principal); Z85.3 Personal history of malignant neoplasm of breast; Z80.3 Family history of malignant neoplasm of breast
CPT/HCPCS: 77063; 77067

== ENCOUNTER → 2021-05-14 08:59 | Outpatient (CLI) | payer MEDICARE, BC, SELFPAY ==
[2021-05-14 10:46] LABS: Hemoglobin A1C% w Est Avg Glu 8.5 % (4.0-6.0)
[2021-05-14 11:03] LABS: Alanine Aminotransferase 18 IU/L (<35); Albumin 3.8 g/dL (3.5-5.0); Albumin Globulin Ratio 1.4 (1.0-2.8); Alkaline Phosphatase 77 U/L (38-126); Aspartate Aminotransferase 22 IU/L (14-36); BUN Creatinine Ratio 18.8 (6-22); Bilirubin Total 0.8 mg/dL (0.2-1.3); Blood Urea Nitrogen 12 mg/dL (7-17); Calcium 9.3 mg/dL (8.4-10.2); Carbon Dioxide 33 mmol/L (22-32); Chloride 103 mmol/L (98-107); Cholesterol 206 mg/dL (140-199); Estimated Glomerular Filt Rate > 60.0 mL/min (>60); Globulin 2.8 g/dL (1.7-4.1); Glucose 163 mg/dL (80-110); HDL Cholesterol 71 mg/dL (40-60); HEMOLYSIS < 15 (0-50); LDL Cholesterol Calculated 117 mg/dL (<100); Potassium 4.7 mmol/L (3.4-5.1); Sodium 138 mmol/L (137-145); Total Protein 6.6 g/dL (6.3-8.2); Triglycerides 90 mg/dL (35-150)
== END ==
PROVIDERS: PCP Family Medicine; Referring Provider Family Medicine; Visit Provider Family Medicine
DX: E11.9 Type 2 diabetes mellitus without complications (principal); I10 Essential (primary) hypertension; E78.2 Mixed hyperlipidemia
CPT/HCPCS: 36415; 80053; 80061; 83036

== ENCOUNTER → 2021-06-11 10:28 | Outpatient (CLI) | payer MEDICARE, BC, SELFPAY ==
--- NOTE | 2021-06-11 10:32 | DI.RAD.S_ITS ---
PROCEDURE: XR FOREARM RT 2V INDICATIONS: Pain TECHNIQUE: 2 views of the forearm were acquired. COMPARISON: None. FINDINGS: Bones: No joint space narrowing and subchondral sclerosis noted in the wrist. No evidence of fracture. No auto text osteopenia Soft tissues: Multiple pelvic phleboliths noted in the dorsal forearm. No radiopaque foreign body. IMPRESSION: 1. No evidence of fracture or foreign body. 2. Osteopenia and osteoarthritis Approved by: Jerod Donnelly M.D. on 06/11/2021 at 10:00
== END ==
PROVIDERS: PCP Family Medicine; Referring Provider Family Medicine; Visit Provider Family Medicine
DX: S51.851A Open bite of right forearm, initial encounter (principal); M79.631 Pain in right forearm; M85.831 Other specified disorders of bone density and structure, right forearm; W55.01XA Bitten by cat, initial encounter
CPT/HCPCS: 73090

== ENCOUNTER → 2021-08-27 10:22 | Outpatient (CLI) | payer MEDICARE, BC, SELFPAY | PROVIDERS: PCP Family Medicine; Referring Provider Family Medicine; Visit Provider Family Medicine | DX: E11.9 Type 2 diabetes mellitus without complications (principal) | CPT/HCPCS: 36415; 83036 ==

== ENCOUNTER → 2021-11-12 10:20 | Outpatient (CLI) | payer MEDICARE, BC, SELFPAY ==
[2021-11-12 11:21] LABS: Hemoglobin A1C% w Est Avg Glu 9.4 % (4.0-6.0)
== END ==
PROVIDERS: PCP Family Medicine; Referring Provider Family Medicine; Visit Provider Family Medicine
DX: E11.9 Type 2 diabetes mellitus without complications (principal)
CPT/HCPCS: 36415; 83036

== ENCOUNTER → 2022-02-11 11:35 | Outpatient (CLI) | payer MEDICARE, BC, SELFPAY ==
[2022-02-11 20:41] LABS: Hemoglobin A1C% w Est Avg Glu 8.7 % (4.0-6.0)
== END ==
PROVIDERS: PCP Family Medicine; Referring Provider Family Medicine; Visit Provider Family Medicine
DX: E11.9 Type 2 diabetes mellitus without complications (principal)
CPT/HCPCS: 36415; 83036

== ENCOUNTER → 2022-05-29 09:53 | Outpatient (CLI) | payer MEDICARE, BC, SELFPAY ==
[2022-05-29 11:18] LABS: Add Manual Diff / Slide Review NO; Basophils Absolute Auto 0 /uL (0-100); Basophils Percent Auto 0.7 % (0-2); Eosinophils Absolute Auto 200 /uL (0-450); Eosinophils Percent Auto 3.6 % (2-4); Hematocrit 44.2 % (36-46); Hemoglobin 14.9 g/dL (12.0-16.0); Lymphocytes Absolute Auto 1800 /uL (1100-4500); Lymphocytes Percent Auto 36.8 % (25-40); Mean Corpuscular HGB Conc 33.8 % (30-36); Mean Corpuscular Hemoglobin 30.7 PG (26-34); Mean Corpuscular Volume 90.9 fL (80-100); Monocytes Absolute Auto 500 /uL (0-900); Monocytes Percent Auto 9.6 % (3-14); Neutrophils Absolute Auto 2500 /uL (1500-7000); Neutrophils Percent Auto 49.3 % (50-75); Platelet Count 179 X10^3/uL (150-400); Red Blood Cell Count 4.87 X10^6/uL (4.0-5.2); Red Cell Distribution Width 13.3 % (11.6-14.8)
[2022-05-29 11:59] LABS: Alanine Aminotransferase 23 IU/L (<35); Albumin 3.6 g/dL (3.5-5.0); Albumin Globulin Ratio 1.2 (1.0-2.8); Alkaline Phosphatase 72 U/L (38-126); Aspartate Aminotransferase 26 IU/L (14-36); Bilirubin Total 0.6 mg/dL (0.2-1.3); Blood Urea Nitrogen 13 mg/dL (7-17); Carbon Dioxide 31 mmol/L (22-32); Chloride 102 mmol/L (98-107); Cholesterol 209 mg/dL (140-199); Estimated Glomerular Filt Rate > 60 mL/min (>60); Globulin 2.9 g/dL (1.7-4.1); Glucose 177 mg/dL (80-110); HDL Cholesterol 65 mg/dL (40-60); HEMOLYSIS < 15 (0-50); LDL Cholesterol Calculated 119 mg/dL (<100); Potassium 5.1 mmol/L (3.4-5.1); Sodium 136 mmol/L (137-145); Total Protein 6.5 g/dL (6.3-8.2); Triglycerides 123 mg/dL (35-150)
== END ==
PROVIDERS: PCP Family Medicine; Referring Provider Family Medicine; Visit Provider Family Medicine
DX: E11.9 Type 2 diabetes mellitus without complications (principal); E78.2 Mixed hyperlipidemia
CPT/HCPCS: 36415; 80053; 80061; 83036; 85025

== ENCOUNTER → 2022-06-02 11:07 | Outpatient (CLI) | payer MEDICARE, BC, SELFPAY ==
--- NOTE | 2022-06-02 | DI.MG.S_ITS ---
BILATERAL DIGITAL SCREENING MAMMOGRAM 3D/2D WITH CAD: 06/02/2022 CLINICAL: Routine screening. Breast cancer. Family history of breast cancer. Comparison is made to exams dated: 05/03/2021 mammogram, 04/25/2020 mammogram, 04/04/2019 mammogram, and 03/17/2019 mammogram - [facility]. There are scattered areas of fibroglandular density in both breasts (category b / 25%-50% glandular tissue). Current study was also evaluated with a Computer Aided Detection (CAD) system. There are benign post operative findings in the right breast. There also is a biopsy clip in the left breast. No significant masses, calcifications, or other findings are seen in either breast. There has been no significant interval change. IMPRESSION: BENIGN There is no mammographic evidence of malignancy. A 1 year screening mammogram is recommended. This exam was interpreted at Station ID: [id number]. NOTE: For mammograms, a report in lay terms will be sent to the patient. Approximately 15% of breast malignancies will not be visualized mammographically. In the management of a palpable breast mass, a negative mammogram must not discourage biopsy of a clinically suspicious lesion. Electronically Signed By: Edwin self/tolu:06/02/2022 13:04:46 copy to: [facility] letter sent: Normal Exam ACR BI-RADS Category 2: Benign Finding(s) 3342F
== END ==
PROVIDERS: PCP Family Medicine; Referring Provider Family Medicine; Visit Provider Family Medicine
DX: Z12.31 Encounter for screening mammogram for malignant neoplasm of breast (principal)
CPT/HCPCS: 77063; 77067

== ENCOUNTER → 2022-09-18 09:55 | Outpatient (CLI) | payer MEDICARE, BC, SELFPAY ==
[2022-09-18 12:32] LABS: Alanine Aminotransferase 23 IU/L (<35); Albumin 3.8 g/dL (3.5-5.0); Albumin Globulin Ratio 1.4 (1.0-2.8); Alkaline Phosphatase 78 U/L (38-126); Aspartate Aminotransferase 25 IU/L (14-36); BUN Creatinine Ratio 22.7 (6-22); Bilirubin Total 0.8 mg/dL (0.2-1.3); Blood Urea Nitrogen 17 mg/dL (7-17); Calcium 9.1 mg/dL (8.4-10.2); Carbon Dioxide 26 mmol/L (22-32); Chloride 103 mmol/L (98-107); Cholesterol 198 mg/dL (140-199); Estimated Glomerular Filt Rate > 60 mL/min (>60); Globulin 2.8 g/dL (1.7-4.1); Glucose 162 mg/dL (80-110); HDL Cholesterol 52 mg/dL (40-60); HEMOLYSIS < 15 (0-50); LDL Cholesterol Calculated 122 mg/dL (<100); Potassium 5.3 mmol/L (3.4-5.1); Sodium 137 mmol/L (137-145); Total Protein 6.6 g/dL (6.3-8.2); Triglycerides 119 mg/dL (35-150)
[2022-09-18 15:25] LABS: Creatinine Urine Random 149.7 mg/dL
[2022-09-18 15:29] LABS: Microalbumi Creatinin Ratio Ur 68.1 ug/mg CR (<30); Microalbumin Urine Random 10.2 mg/dL (0-1.6)
[2022-09-19 04:30] LABS: Labcorp Hemoglobin (Hb) A1c 8.2 % (4.8-5.6)
== END ==
PROVIDERS: PCP Family Medicine; Referring Provider Family Medicine; Visit Provider Family Medicine
DX: E78.2 Mixed hyperlipidemia; I10 Essential (primary) hypertension; E11.9 Type 2 diabetes mellitus without complications
CPT/HCPCS: 36415; 80053; 80061; 82043; 82570; 83036

== ENCOUNTER → 2022-12-25 10:40 | Outpatient (CLI) | payer MEDICARE, BC, SELFPAY ==
[2022-12-25 12:16] LABS: Hemoglobin A1C% w Est Avg Glu 10.4 % (4.0-6.0)
== END ==
PROVIDERS: PCP Family Medicine; Referring Provider Family Medicine; Visit Provider Family Medicine
DX: E11.9 Type 2 diabetes mellitus without complications (principal)
CPT/HCPCS: 36415; 83036

== ENCOUNTER → 2023-04-09 11:49 | Outpatient (CLI) | payer MEDICARE, BC, SELFPAY ==
[2023-04-09 12:54] LABS: Hemoglobin A1C% w Est Avg Glu 11.6 % (4.0-6.0)
== END ==
PROVIDERS: PCP Family Medicine; Referring Provider Family Medicine; Visit Provider Family Medicine
DX: E11.9 Type 2 diabetes mellitus without complications (principal)
CPT/HCPCS: 36415; 83036

== ENCOUNTER → 2023-09-29 11:06 | Outpatient (CLI) | payer MEDICARE, BC, SELFPAY ==
[2023-09-29 12:36] LABS: Add Manual Diff / Slide Review NO; Basophils Absolute Auto 100 /uL (0-100); Basophils Percent Auto 0.8 % (0-2); Eosinophils Absolute Auto 100 /uL (0-450); Eosinophils Percent Auto 1.6 % (2-4); Hematocrit 46.9 % (36-46); Hemoglobin 16.2 g/dL (12.0-16.0); Lymphocytes Absolute Auto 1500 /uL (1100-4500); Lymphocytes Percent Auto 23.2 % (25-40); Mean Corpuscular HGB Conc 34.5 % (30-36); Mean Corpuscular Hemoglobin 31.1 PG (26-34); Mean Corpuscular Volume 90.2 fL (80-100); Monocytes Absolute Auto 500 /uL (0-900); Monocytes Percent Auto 7.7 % (3-14); Neutrophils Absolute Auto 4400 /uL (1500-7000); Neutrophils Percent Auto 66.7 % (50-75); Platelet Count 209 X10^3/uL (150-400); Red Cell Distribution Width 13.4 % (11.6-14.8); White Blood Cell Count 6.6 X10^3/uL (4.5-11.0)
[2023-09-29 13:14] LABS: Alanine Aminotransferase 25 IU/L (<35); Albumin 3.8 g/dL (3.5-5.0); Albumin Globulin Ratio 1.5 (1.0-2.8); Alkaline Phosphatase 82 U/L (38-126); Aspartate Aminotransferase 23 IU/L (14-36); Bilirubin Total 0.8 mg/dL (0.2-1.3); Blood Urea Nitrogen 16 mg/dL (7-17); Calcium 9.3 mg/dL (8.4-10.2); Carbon Dioxide 26 mmol/L (22-32); Chloride 102 mmol/L (98-107); Cholesterol 210 mg/dL (140-199); Estimated Glomerular Filt Rate > 60 mL/min (>60); Globulin 2.6 g/dL (1.7-4.1); Glucose 318 mg/dL (80-110); HDL Cholesterol 55 mg/dL (40-60); HEMOLYSIS < 15 (0-50); LDL Cholesterol Calculated 126 mg/dL (<100); Sodium 136 mmol/L (137-145); Total Protein 6.4 g/dL (6.3-8.2); Triglycerides 144 mg/dL (35-150)
[2023-09-29 13:26] LABS: Potassium 5.5 mmol/L (3.4-5.1)
[2023-09-29 13:43] LABS: Free T3, Triiodothyronine Free 3.02 pg/mL (2.77-5.27)
[2023-09-29 13:56] LABS: TSH w/ Reflex to FT4 3.57 uIU/mL (0.47-4.68)
== END ==
PROVIDERS: PCP Family Medicine; Referring Provider Family Medicine; Visit Provider Family Medicine
DX: Z79.899 Other long term (current) drug therapy (principal); E78.2 Mixed hyperlipidemia; I10 Essential (primary) hypertension; E11.9 Type 2 diabetes mellitus without complications
CPT/HCPCS: 36415; 80053; 80061; 83036; 84439; 84443; 84481; 85025

== ENCOUNTER → 2023-12-31 11:00 | Outpatient (CLI) | payer MEDICARE, BC, SELFPAY ==
[2023-12-31 12:55] LABS: Hemoglobin A1C% w Est Avg Glu 9.4 % (4.0-6.0)
[2023-12-31 13:15] LABS: Alanine Aminotransferase 20 IU/L (<35); Albumin 4.1 g/dL (3.5-5.0); Albumin Globulin Ratio 1.5 (1.0-2.8); Alkaline Phosphatase 72 U/L (38-126); Aspartate Aminotransferase 25 IU/L (14-36); BUN Creatinine Ratio 23.8 (6-22); Bilirubin Total 0.8 mg/dL (0.2-1.3); Blood Urea Nitrogen 19 mg/dL (7-17); Calcium 9.7 mg/dL (8.4-10.2); Carbon Dioxide 27 mmol/L (22-32); Chloride 101 mmol/L (98-107); Estimated Glomerular Filt Rate > 60 mL/min (>60); Globulin 2.8 g/dL (1.7-4.1); Glucose 162 mg/dL (80-110); HEMOLYSIS < 15 (0-50); Sodium 137 mmol/L (137-145); Total Protein 6.9 g/dL (6.3-8.2)
[2023-12-31 14:01] LABS: Creatinine Urine Random 49.41 mg/dL
[2023-12-31 14:08] LABS: Microalbumin Urine Random 2.2 mg/dL (0-1.6)
== END ==
PROVIDERS: PCP Family Medicine; Referring Provider Family Medicine; Visit Provider Family Medicine
DX: E87.5 Hyperkalemia (principal); E11.65 Type 2 diabetes mellitus with hyperglycemia; E78.2 Mixed hyperlipidemia
CPT/HCPCS: 80053; 82043; 82570; 83036

== ENCOUNTER → 2024-04-07 10:26 | Outpatient (CLI) | payer MEDICARE, BC, SELFPAY ==
[2024-04-07 11:17] LABS: Alanine Aminotransferase 31 IU/L (<35); Albumin 4.3 g/dL (3.5-5.0); Albumin Globulin Ratio 1.5 (1.0-2.8); Alkaline Phosphatase 79 U/L (38-126); Aspartate Aminotransferase 33 IU/L (14-36); BUN Creatinine Ratio 20.5 (6-22); Bilirubin Total 0.9 mg/dL (0.2-1.3); Blood Urea Nitrogen 15 mg/dL (7-17); Calcium 9.7 mg/dL (8.4-10.2); Carbon Dioxide 27 mmol/L (22-32); Chloride 100 mmol/L (98-107); Cholesterol 260 mg/dL (140-199); Estimated Glomerular Filt Rate > 60 mL/min (>60); Globulin 2.9 g/dL (1.7-4.1); Glucose 238 mg/dL (80-110); HDL Cholesterol 67 mg/dL (40-60); HEMOLYSIS 20 (0-50); LDL Cholesterol Calculated 164 mg/dL (<100); Potassium 4.6 mmol/L (3.4-5.1); Sodium 136 mmol/L (137-145); Total Protein 7.2 g/dL (6.3-8.2); Triglycerides 143 mg/dL (35-150)
[2024-04-07 11:21] LABS: Hemoglobin A1C% w Est Avg Glu 9.9 % (4.0-6.0)
== END ==
PROVIDERS: PCP Family Medicine; Referring Provider Family Medicine; Visit Provider Family Medicine
DX: E11.9 Type 2 diabetes mellitus without complications (principal); E78.2 Mixed hyperlipidemia
CPT/HCPCS: 36415; 80053; 80061; 83036

== ENCOUNTER → 2024-08-16 09:55 | Outpatient (CLI) | payer MEDICARE, BC, SELFPAY ==
[2024-08-16 10:19] LABS: Add Manual Diff / Slide Review NO; Basophils Absolute Auto 100 /uL (0-100); Basophils Percent Auto 0.9 % (0-2); Eosinophils Absolute Auto 200 /uL (0-450); Eosinophils Percent Auto 2.9 % (2-4); Hematocrit 46.6 % (36-46); Hemoglobin 16.1 g/dL (12.0-16.0); Lymphocytes Absolute Auto 1800 /uL (1100-4500); Lymphocytes Percent Auto 29.2 % (25-40); Mean Corpuscular HGB Conc 34.6 % (30-36); Mean Corpuscular Hemoglobin 31.2 PG (26-34); Mean Corpuscular Volume 90.2 fL (80-100); Monocytes Absolute Auto 400 /uL (0-900); Monocytes Percent Auto 6.8 % (3-14); Neutrophils Absolute Auto 3700 /uL (1500-7000); Neutrophils Percent Auto 60.2 % (50-75); Platelet Count 217 X10^3/uL (150-400); Red Blood Cell Count 5.17 X10^6/uL (4.0-5.2); Red Cell Distribution Width 13.3 % (11.6-14.8); White Blood Cell Count 6.1 X10^3/uL (4.5-11.0)
[2024-08-16 10:44] LABS: Hemoglobin A1C% w Est Avg Glu 11.6 % (4.0-6.0)
[2024-08-16 10:49] LABS: Alanine Aminotransferase 25 IU/L (<35); Albumin 4.1 g/dL (3.5-5.0); Albumin Globulin Ratio 1.5 (1.0-2.8); Alkaline Phosphatase 78 U/L (38-126); Aspartate Aminotransferase 28 IU/L (14-36); BUN Creatinine Ratio 20.3 (6-22); Bilirubin Total 0.9 mg/dL (0.2-1.3); Blood Urea Nitrogen 15 mg/dL (7-17); Calcium 9.7 mg/dL (8.4-10.2); Carbon Dioxide 26 mmol/L (22-32); Chloride 101 mmol/L (98-107); Estimated Glomerular Filt Rate > 60 mL/min (>60); Globulin 2.7 g/dL (1.7-4.1); Glucose 292 mg/dL (70-99); HEMOLYSIS < 15 (0-50); Sodium 136 mmol/L (137-145); Total Protein 6.8 g/dL (6.3-8.2)
== END ==
PROVIDERS: PCP Family Medicine; Referring Provider Family Medicine; Visit Provider Family Medicine
DX: E78.2 Mixed hyperlipidemia (principal)
CPT/HCPCS: 36415; 80053; 83036; 85025

== ENCOUNTER → 2024-10-04 10:54 | Outpatient (CLI) | payer MEDICARE, BC, SELFPAY ==
--- NOTE | 2024-10-07 17:23 | DIAB.MNT ---
Initial Diabetes Medical Nutrition Therapy Assessment Name: Mirna Ortega Date: 10/04/24 Time: 2010-3709p Dx: Type II Diabetes Provider: Mauricio Preferred Learning Style: Doing, Reading, Listening, Watching Mirna presents for initial Dm visit. Diagnosed at least since 2016 per labs available in EMR, however she is unsure about when first diagnosed. H/o rash with SGLT2i. Taking GLP1 and Metformin. Recent hgA1c of 11.6% Reports reduced activity since shoulder injury after a fall per report. Endorses freq urination with waking q 2 hours. Numbness in feet for years. Noticed reduced appetite as of recent, GLP1? Feels she has less energy, hyperglycemia? wants to review Bg goals and nutrition recs. use to have a cookie with meds, cut this out. Avoiding rice, pasta, bread and potatoes. Some concerns for balancing quality of life with drastic diet changes cutting out foods she enjoys. Diet Recall: 7am: egg, coffee. Once per week 1 oats dry with berries and brown sugar 12p: peanut butter and aple OR Chinese yogurt plain with fruit 530p: salad with protein and coffee 9p: non fat milk x 4 oz water 24oz coffee 1c Anthropometrics: Ht: 64 Wt: 154# reported 09/2024 Physical Activity: stationary bike 1-2x per week, use to be 5 days per week x 30 mins Self-Monitoring Blood Glucose: Checking FBG and all elevated, though improved since adding GLP1 Date Pre Post Pre Post Pre Post HS 09/28 182 09/29 203 09/30 179 10/01 154 10/02 155 10/03 178 10/04 211 Diabetes Medications: 1.2mg Victoza 1000mg Metformin BID Pertinent Labs: HgA1c; 11.6% 08/2024 Past Medical History: (Last Updated 04/12/24 @ 17:44 by Abdi Martínez, DO) Actinic keratoses Actinic keratosis due to exposure to sunlight Acute pain of right shoulder due to trauma Breast cancer of upper-outer quadrant of right female breast Isela infection of flexural skin Chicken pox (~1946) Dry skin Foot pain (~2013) Hay fever (~1997) Hyperkalemia with normal acid-base balance Hypertension (~1994) Mild Hyperthyroidism [id number] Left buttock pain Malignant neoplasm of central portion of right female breast (01/03/15) Measles (~1974) Medication reaction Mixed hyperlipidemia (02/20/17) Mumps Nonscarring hair loss Osteoarthritis Osteopenia (~2011) Scoliosis (~2013) Skin lump of arm Stressful life event affecting family Uncontrolled diabetes mellitus Upper extremity somatic dysfunction Warts Nutrition Rx: Carbohydrates: Meal:30g Snack:15-30g Nutrition Diagnosis: - Reduced physical activity r/t shoulder injury aeb pt report - Nutrition and food related knowledge deficit r/t patient needing more guidance on food portions, quality of life with foods, and goals aeb pt report Intervention: This participant was very receptive. Provided appropriate educational handouts. Discussed the following topics: Completed intake assessment. Discussed barriers to care. Recommended servings for carbohydrates at meals and snacks Meal timing Quality of life with food and DM management BG and hgA1c goals Role of physical activity and following provider guidelines for safety Created SMART goals for patient self-care and success. Goals: Continue eating q 3-4 hours Restart bike safely Titrate GLP1 per rx Follow-up: HERBERT LANZA follow-up in 2-3 weeks. Seems Mirna's Bg have improved with increasing GLP1 to 1.2mg. Hoping the increase to 1.8mg will continue to show progress in her Bg and perhaps allow her to sometimes enjoy carbs she likes in moderation. Heydi Romano RDN, [facility] Certified Diabetes Care and [facility] P: [phone] Thank you for this referral
== END ==
LOC: DIET 10:55
PROVIDERS: PCP Family Medicine; Referring Provider Family Medicine
DX: E11.9 Type 2 diabetes mellitus without complications (principal); Z79.84 Long term (current) use of oral hypoglycemic drugs; Z79.85 Long-term (current) use of injectable non-insulin antidiabetic drugs; Z71.3 Dietary counseling and surveillance
CPT/HCPCS: 97802

== ENCOUNTER → 2024-12-06 10:47 | Outpatient (CLI) | payer MEDICARE, BC, SELFPAY ==
--- NOTE | 2024-12-15 14:32 | DIAB.MNTFU ---
Follow-up Diabetes Medical Nutrition Therapy Assessment Name: Mirna Ortega Date: 12/06/24 Time: [id number] Dx: Type II Diabetes Mirna presents for Dm visit. H/o rash with SGLT2i. Taking GLP1 and Metformin. States she has tried adding afternoon snack inconsistently. Really misses eating pancakes with jam. Forgetting to check BG HS. UTD on dental and eye Wears socks but no slippers in the house due to fear of tripping. Lotions feet daily. Cuts own nails. Endorses some neuropathy. Diet Recall: 7am: egg, coffee. Once per week 1/3c oats dry with berries and brown sugar OR Marshallese yogurt 12p: peanut butter and apple OR Marshallese yogurt plain with fruit Or half sandwich sn: nothing or nuts or part pro shake 530p: salad with protein OR veg with beans, salad and fruit 9p: 1/2 protein shake water 24oz coffee 1c protein shake Anthropometrics: Ht: 64 Wt: 146# reported 11/2024 154# reported 09/2024 Physical Activity: Recent issue with bike but was fixed. Was doing 4 days per week x 5 minutes on stationary bike. Increased activity since last visit. Last visit she reported she use to ride stationary bike 5 days per week x 30 mins Self-Monitoring Blood Glucose: Checking FBG. All above goal and most similar to last visit. Today: Date Pre Post Pre Post Pre Post HS 11/30 149 12/01 150 12/02 140 12/03 162 12/04 140 12/05 172 12/06 153 Last Visit Date Pre Post Pre Post Pre Post HS 11/02 149 11/03 159 11/04 141 11/05 140 11/06 128 11/07 135 9 139 Diabetes Medications: 1.8mg Victoza 1000mg Metformin BID Pertinent Labs: HgA1c; 11.6% 08/2024 Past Medical History: (Last Updated 04/12/24 @ 17:44 by Abdi Martínez DO) Actinic keratoses Actinic keratosis due to exposure to sunlight Acute pain of right shoulder due to trauma Breast cancer of upper-outer quadrant of right female breast Isela infection of flexural skin Chicken pox (~1946) Dry skin Foot pain (~2013) Hay fever (~1997) Hyperkalemia with normal acid-base balance Hypertension (~1994) MildHyperthyroidism 2009-2010Left buttock pain Malignant neoplasm of central portion of right female breast (01/03/15) Measles (~1974) Medication reaction Mixed hyperlipidemia (02/20/17) Mumps Nonscarring hair loss Osteoarthritis Osteopenia (~2011) Scoliosis (~2013) Skin lump of arm Stressful life event affecting family Uncontrolled diabetes mellitus Upper extremity somatic dysfunction Warts Nutrition Rx: Carbohydrates: Meal:30gSnack:15-30g Nutrition Diagnosis: - Reduced physical activity r/t shoulder injury aeb pt report- improved - Nutrition and food related knowledge deficit r/t patient needing more guidance on food portions, quality of life with foods, and goals aeb pt report- in progress Intervention: This participant was very receptive. Provided appropriate educational handouts. Discussed the following topics: BG trends and goals physical activity goals and progress reducing dm complications carb foods she enjoys in moderation and added protein macro pairing Created SMART goals for patient self-care and success. Goals: Add mid afternoon snack more consistently- in progress Trial 5 min stationary bike 2-3 x per week- met Check a few HS readings- not met Restart bike- new Try pancake with protein (egg or pro drink)- new Follow-up: HERBERT LANZA follow-up in 3-4 weeks Heydi Romano RDN, [facility] Certified Diabetes Care and [employer] P: [phone] Thank you for this referral
== END ==
LOC: DIET 10:49
PROVIDERS: PCP Family Medicine; Referring Provider Family Medicine
DX: E11.9 Type 2 diabetes mellitus without complications (principal); Z71.3 Dietary counseling and surveillance; Z79.84 Long term (current) use of oral hypoglycemic drugs; Z79.85 Long-term (current) use of injectable non-insulin antidiabetic drugs
CPT/HCPCS: 97803

== ENCOUNTER → 2025-01-03 10:23 | Outpatient (CLI) | payer MEDICARE, BC, SELFPAY ==
[2025-01-03 10:58] LABS: Add Manual Diff / Slide Review NO; Hematocrit 46.6 % (36-46); Hemoglobin 16.0 g/dL (12.0-16.0); Lymphocytes Absolute Auto 1700 /uL (1100-4500); Mean Corpuscular HGB Conc 34.3 % (30-36); Mean Corpuscular Hemoglobin 30.9 PG (26-34); Mean Corpuscular Volume 90.1 fL (80-100); Platelet Count 239 X10^3/uL (150-400)
[2025-01-03 11:09] LABS: Hemoglobin A1C% w Est Avg Glu 6.5 % (4.0-6.0)
[2025-01-03 11:31] LABS: Alanine Aminotransferase 23 IU/L (<35); Albumin 4.3 g/dL (3.5-5.0); Albumin Globulin Ratio 1.5 (1.0-2.8); Alkaline Phosphatase 71 U/L (38-126); Blood Urea Nitrogen 23 mg/dL (7-17); Calcium 9.9 mg/dL (8.4-10.2); Carbon Dioxide 29 mmol/L (22-32); Chloride 97 mmol/L (98-107); Cholesterol 212 mg/dL (140-199); Estimated Glomerular Filt Rate > 60 mL/min (>60); Globulin 2.9 g/dL (1.7-4.1); Glucose 134 mg/dL (70-99); HDL Cholesterol 54 mg/dL (40-60); HEMOLYSIS < 15 (0-50); Potassium 4.5 mmol/L (3.4-5.1); Sodium 136 mmol/L (137-145); Total Protein 7.2 g/dL (6.3-8.2); Triglycerides 138 mg/dL (35-150)
== END ==
PROVIDERS: PCP Family Medicine; Referring Provider Family Medicine; Visit Provider Family Medicine
DX: E11.9 Type 2 diabetes mellitus without complications (principal); I10 Essential (primary) hypertension; E78.2 Mixed hyperlipidemia
CPT/HCPCS: 36415; 80053; 80061; 83036; 85025

== ENCOUNTER → 2025-01-31 12:05 | Outpatient (CLI) | payer MEDICARE, BC, SELFPAY ==
--- NOTE | 2025-02-24 11:32 | DIAB.MNTFU ---
Follow-up Diabetes Medical Nutrition Therapy Assessment Name: Mirna Ortega Date: 01/31/25 Time: 1-130p Dx: Type II Diabetes Mirna presents for Dm visit. H/o rash with SGLT2i. Taking GLP1 and Metformin. Much improved hgA1c recetly at 6.5%. Oatmeal to 2x per week. adding fresh fruit, no protein. Following a low CHO diet, has room for adding more fiber. Diet Recall: 7am: egg, coffee. 2x per week 1/3c oats dry with berries and brown sugar OR Estonian yogurt 12p: peanut butter and apple OR Estonian yogurt plain with fruit Or half sandwich on ww thin sn: nothing or nuts or part pro shake 530p: salad with protein OR veg alexandra with salad Or soup with veggies 9p: 1/2 protein shake +/- nuts Anthropometrics: Ht: 64 Wt: 147# 01/2025 146# reported 11/2024 154# reported 09/2024 Physical Activity: Reduced due to twisted knee injury per report. Self-Monitoring Blood Glucose: Checking FBG. Most in goal, much improved from last visit. Today: Date Pre Post Pre Post Pre Post HS 01/25 124 01/26 140 01/27 124 01/28 120 01/29 118 01/30 127 01/31 115 Last Visit Date Pre Post Pre Post Pre Post HS 11/30 149 12/01 150 12/02 140 12/03 162 12/04 140 12/05 172 12/06 153 Diabetes Medications: 1.8mg Victoza 1000mg Metformin BID Pertinent Labs: HgA1c; 11.6% 08/2024 6.5% 12/2024 Past Medical History: (Last Updated 04/12/24 @ 17:44 by Abdi Martínez DO) Actinic keratoses Actinic keratosis due to exposure to sunlight Acute pain of right shoulder due to trauma Breast cancer of upper-outer quadrant of right female breast Isela infection of flexural skin Chicken pox (~1946) Dry skin Foot pain (~2013) Hay fever (~1997) Hyperkalemia with normal acid-base balance Hypertension (~1994) MildHyperthyroidism 2008-2009Left buttock pain Malignant neoplasm of central portion of right female breast (01/03/15) Measles (~1974) Medication reaction Mixed hyperlipidemia (02/20/17) Mumps Nonscarring hair loss Osteoarthritis Osteopenia (~2011) Scoliosis (~2013) Skin lump of arm Stressful life event affecting family Uncontrolled diabetes mellitus Upper extremity somatic dysfunction Warts Nutrition Rx: Carbohydrates: Meal:30gSnack:15-30g Nutrition Diagnosis: - Reduced physical activity r/t injury aeb pt report- new - Nutrition and food related knowledge deficit r/t patient needing more guidance on food portions, quality of life with foods, and goals aeb pt report- improved Intervention: This participant was very receptive. Provided appropriate educational handouts. Discussed the following topics: BG trends and goals physical activity goals and barriers Fiber food options and benefits hgA1c trends and goals and rationale Macronutrient pairing Created SMART goals for patient self-care and success. Goals: Restart bike- d/c Try pancake with protein (egg or pro drink)- met Check feet daily - met Add protein to oats- new Follow-up: HERBERT LANZA follow-up in prn per pt req. Heydi Romano, HER[facility], [facility] Certified Diabetes Care and Educational Therapy Teacher P: [phone] Thank you for this referral
== END ==
LOC: DIET 12:06
PROVIDERS: PCP Family Medicine; Referring Provider Family Medicine
DX: E11.9 Type 2 diabetes mellitus without complications (principal); Z71.3 Dietary counseling and surveillance; Z79.85 Long-term (current) use of injectable non-insulin antidiabetic drugs; Z79.84 Long term (current) use of oral hypoglycemic drugs
CPT/HCPCS: 97803